=== PATIENT | female | born 1995 | race African-American/Black ===

== ENCOUNTER 2022-01-31 14:31 | Emergency (ER) | payer OTHER ==
[2022-01-31 14:44] VITALS: BP 143/92; PULSE 106; TEMP 98.3; BMI 24.2
== END 2022-01-31 15:22 | disposition home or self-care (01) ==
LOC: JERFT 14:31
DX: Z76.0 Encounter for issue of repeat prescription (principal)
CPT/HCPCS: 99281-25

== ENCOUNTER 2022-09-29 00:19 | Emergency (ER) | payer OTHER ==
[2022-09-29 00:27] VITALS: BP 128/85; PULSE 100; RESP 20; TEMP 98.5; BMI 26.6
[2022-09-29] MEDS ORDERED: IBUPROFEN 400 MG TABLET (FP) PO ONE ×2 (03:19→03:22)
== END 2022-09-29 03:50 | disposition home or self-care (01) ==
LOC: JER 00:19
DX: U07.1 COVID-19 (principal)
CPT/HCPCS: 0241U-QW; 99283-25

== ENCOUNTER 2022-10-16 20:17 | Emergency (ER) | payer OTHER ==
[2022-10-16 20:43] VITALS: BP 144/84; PULSE 82; RESP 18; TEMP 98.1; BMI 23.5
[2022-10-16] MEDS ORDERED: ACETAMINOPHEN 1000 MG/100 ML BAG IVPB ONE (22:01)
[2022-10-16] MEDS ORDERED: ONDANSETRON 4 MG/2 ML VIAL IVPUSH ONE (22:01)
[2022-10-16] MEDS ORDERED: ONDANSETRON 4 MG/2 ML VIAL ONE (22:45)
[2022-10-16] MEDS ORDERED: ACETAMINOPHEN INJECTION 100 ML IVPB ONE (22:45)
[2022-10-16 23:48] LABS: BASO % 0.5 % (0-2.0); EOS % 0.8 % (0-4.5); HEMATOCRIT 29.1 % (32.4-45.2); HEMOGLOBIN 9.3 GM/dL (10.7-15.3); LYMPH % 29.6 % (8-40); MCH 27.2 pg (25.7-33.7); MCHC 32.1 g/dl (32.0-36.0); MEAN CELL VOLUME 84.7 fl (80-96); MEAN PLT VOLUME 8.6 fl (7.5-11.1); MONO % 9.8 % (3.8-10.2); NEUT % 59.3 % (42.8-82.8); PLATELET COUNT 270 10^3/uL (134-434); RBC 3.43 M/mm3 (3.60-5.2); RDW 14.8 % (11.6-15.6); WHITE BLOOD COUNT 7.4 K/mm3 (4.0-10.0)
[2022-10-16 23:52] LABS: HCG,QUALITATIVE URINE Positive
[2022-10-16 23:57] LABS: EPI CELLS 15 /uL (0-25.1); HYALINE CASTS 2 /uL (0-3.1); URINE APPEARANCE CLEAR; URINE BACTERIA 58 /uL (0-1359); URINE BILIRUBIN NEGATIVE (NEGATIVE); URINE COLOR YELLOW; URINE GLUCOSE (UA) NEGATIVE (NEGATIVE); URINE KETONE TRACE (NEGATIVE); URINE LEUK ESTERASE NEGATIVE (NEGATIVE); URINE NITRITE NEGATIVE (NEGATIVE); URINE PROTEIN 1+ (NEGATIVE); URINE RBC 200 /uL (0-23.9); URINE WBC 7 /uL (0-25.8)
[2022-10-17 00:10] LABS: CALCIUM 9.2 mg/dL (8.5-10.1)
[2022-10-17 00:11] LABS: ALBUMIN 3.2 g/dl (3.4-5.0); BLOOD UREA NITROGEN 14.2 mg/dL (7-18)
[2022-10-17 00:14] LABS: CREATININE 0.9 mg/dL (0.55-1.3)
[2022-10-17 00:15] LABS: BILIRUBIN,TOTAL 0.2 mg/dL (0.2-1); TOT PROT 7.5 g/dl (6.4-8.2)
== END 2022-10-17 03:15 | disposition home or self-care (01) ==
LOC: JER 20:17
PROC: 3E0333Z Introduction of Anti-inflammatory into Peripheral Vein, Percutaneous Approach (ICD-10-PCS; principal; 2022-10-16)
PROC: 3E033GC Introduction of Other Therapeutic Substance into Peripheral Vein, Percutaneous Approach (ICD-10-PCS; 2022-10-16)
DX: O46.91 Antepartum hemorrhage, unspecified, first trimester (principal); Z3A.01 Less than 8 weeks gestation of pregnancy
CPT/HCPCS: 36415; 76830-TC; 80053; 81003; 84702; 84703; 85025; 86850; 86900; 86901; 87491; 87591; 99284-25

== ENCOUNTER 2022-10-17 18:44 | Emergency (ER) | payer OTHER ==
[2022-10-17 19:03] VITALS: BMI 23.4
[2022-10-17] MEDS ORDERED: morphine CARPU-JECT 4 MG/1 ML DISP.SYRIN IVPUSH ONE (19:36)
[2022-10-17] MEDS ORDERED: SODIUM CHLORIDE 0.9% 500 ML INFUS.BAG IV ONE (19:36)
[2022-10-17 20:48] LABS: BASO % 0.2 % (0-2.0); HEMATOCRIT 29.8 % (32.4-45.2); HEMOGLOBIN 9.6 GM/dL (10.7-15.3); LYMPH % 19.1 % (8-40); MCH 27.5 pg (25.7-33.7); MCHC 32.4 g/dl (32.0-36.0); MEAN PLT VOLUME 8.9 fl (7.5-11.1); MONO % 8.6 % (3.8-10.2); NEUT % 71.1 % (42.8-82.8); PLATELET COUNT 293 10^3/uL (134-434); RDW 15.3 % (11.6-15.6); WHITE BLOOD COUNT 7.2 K/mm3 (4.0-10.0)
[2022-10-17 21:15] LABS: ALBUMIN 3.4 g/dl (3.4-5.0); BLOOD UREA NITROGEN 10.6 mg/dL (7-18); CALCIUM 9.4 mg/dL (8.5-10.1)
[2022-10-17 21:18] LABS: CREATININE 0.9 mg/dL (0.55-1.3)
[2022-10-17 21:20] LABS: BILIRUBIN,TOTAL 0.2 mg/dL (0.2-1); TOT PROT 7.7 g/dl (6.4-8.2)
[2022-10-17] MEDS ORDERED: morphine SULFATE 4 MG/ML VIAL ONE (21:47)
[2022-10-17 22:26] LABS: INR 1.03 (0.83-1.09); PROTHROMBIN TIME (PATIENT) 11.9 SEC (9.7-13.0)
[2022-10-18] MEDS ORDERED: ACETAMINOPHEN 1000 MG/100 ML BAG IVPB ONE (00:39)
[2022-10-18] MEDS ORDERED: ACETAMINOPHEN INJECTION 100 ML IVPB ONE (00:53)
[2022-10-18 02:59] VITALS: BP 127/83; PULSE 86; RESP 18; TEMP 98.1
== END 2022-10-18 03:13 | disposition home or self-care (01) ==
LOC: JER 18:44
PROC: 3E033GC Introduction of Other Therapeutic Substance into Peripheral Vein, Percutaneous Approach (ICD-10-PCS; principal; 2022-10-17)
DX: O20.9 Hemorrhage in early pregnancy, unspecified (principal); Z3A.00 Weeks of gestation of pregnancy not specified
CPT/HCPCS: 0241U-QW; 36415; 76817-TC; 80053; 84702; 85025; 85610; 85730; 86850; 86900; 86901; 93005; 93010; 99285-25

== ENCOUNTER 2022-10-19 01:12 | Emergency (ER) | payer OTHER ==
[2022-10-19 01:47] VITALS: RESP 17; TEMP 98.2; BMI 26.6
[2022-10-19] MEDS ORDERED: KETOROLAC TROMETHAMINE 60 MG/2 ML VIAL IM ONE (01:53)
[2022-10-19] MEDS ORDERED: KETOROLAC TROMETHAMINE 60 MG/2 ML VIAL ONE (01:55)
[2022-10-19] MEDS ORDERED: morphine CARPU-JECT 4 MG/1 ML DISP.SYRIN IVPUSH ONE (02:55)
[2022-10-19] MEDS ORDERED: ONDANSETRON 4 MG/2 ML VIAL IVPUSH ONE (03:07)
[2022-10-19 03:36] LABS: HEMATOCRIT 28.3 % (32.4-45.2); HEMOGLOBIN 9.3 GM/dL (10.7-15.3); MCH 27.8 pg (25.7-33.7); MEAN CELL VOLUME 84.3 fl (80-96); MEAN PLT VOLUME 8.7 fl (7.5-11.1); PLATELET COUNT 280 10^3/uL (134-434); RBC 3.36 M/mm3 (3.60-5.2); RDW 15.1 % (11.6-15.6); WHITE BLOOD COUNT 10.2 K/mm3 (4.0-10.0)
[2022-10-19 03:52] LABS: CHLORIDE 99 mmol/L (98-107); SODIUM 123 mmol/L (136-145)
[2022-10-19 03:54] LABS: ALBUMIN 3.2 g/dl (3.4-5.0); BLOOD UREA NITROGEN 7.3 mg/dL (7-18); CALCIUM 8.5 mg/dL (8.5-10.1); CO2 23 mmol/L (21-32); GLUCOSE,RANDOM 100 mg/dL (74-106)
[2022-10-19 03:57] LABS: CREATININE 0.7 mg/dL (0.55-1.3)
[2022-10-19 03:59] LABS: TOT PROT 9.2 g/dl (6.4-8.2)
[2022-10-19 04:00] LABS: ALK PHOS 53 U/L (45-117)
[2022-10-19] MEDS ORDERED: SODIUM CHLORIDE 0.9% 500 ML INFUS.BAG IV ONE (04:04)
[2022-10-19 04:17] LABS: ANION GAP 2 MMOL/L (8-16); SGOT/AST 258 U/L (15-37)
[2022-10-19] MEDS ORDERED: morphine SULFATE 4 MG/ML VIAL ONE (04:26)
[2022-10-19 05:03] LABS: CALCIUM 9.1 mg/dL (8.5-10.1)
[2022-10-19 05:04] LABS: ALBUMIN 3.4 g/dl (3.4-5.0); BLOOD UREA NITROGEN 7.3 mg/dL (7-18)
[2022-10-19 05:07] LABS: CREATININE 0.7 mg/dL (0.55-1.3)
[2022-10-19 05:09] LABS: BILIRUBIN,TOTAL 0.3 mg/dL (0.2-1); TOT PROT 7.7 g/dl (6.4-8.2)
[2022-10-19 07:18] LABS: ANISOCYTOSIS 2+; MACROCYTOSIS 0
[2022-10-19] MEDS ORDERED: ACETAMINOPHEN 500 MG TABLET (FP) PO ONE (07:38)
[2022-10-19] MEDS ORDERED: ACETAMINOPHEN 325 MG TABLET (FP) ONE (07:41)
[2022-10-19 09:28] VITALS: BP 122/76; PULSE 79
[2022-10-19] MEDS ORDERED: MISOPROSTOL 200 MCG TABLET PO SCH ×2 (09:30→12:00)
== END 2022-10-19 10:07 | disposition home or self-care (01) ==
LOC: JER 01:12
PROC: 3E033GC Introduction of Other Therapeutic Substance into Peripheral Vein, Percutaneous Approach (ICD-10-PCS; principal; 2022-10-19)
PROC: 3E023GC Introduction of Other Therapeutic Substance into Muscle, Percutaneous Approach (ICD-10-PCS; principal; 2022-10-19)
DX: O20.9 Hemorrhage in early pregnancy, unspecified (principal); Z3A.00 Weeks of gestation of pregnancy not specified
CPT/HCPCS: 0241U-QW; 36415; 76817-TC; 80053; 84702; 85025; 99285-25

== ENCOUNTER 2022-10-20 18:08 | Inpatient (IN) | payer OTHER ==
[2022-10-20 18:23] VITALS: BMI 26.2
[2022-10-20] MEDS ORDERED: ACETAMINOPHEN 1000 MG/100 ML BAG IVPB ONE (18:44)
[2022-10-20] MEDS ORDERED: ONDANSETRON 4 MG/2 ML VIAL IVPUSH ONE (18:44)
[2022-10-20] MEDS ORDERED: ONDANSETRON 4 MG/2 ML VIAL ONE (19:28)
[2022-10-20 19:40] LABS: BASO % 0.2 % (0-2.0); HEMATOCRIT 25.6 % (32.4-45.2); HEMOGLOBIN 8.1 GM/dL (10.7-15.3); LYMPH % 8.6 % (8-40); MCHC 31.8 g/dl (32.0-36.0); MEAN CELL VOLUME 84.9 fl (80-96); MEAN PLT VOLUME 8.7 fl (7.5-11.1); MONO % 2.2 % (3.8-10.2); PLATELET COUNT 325 10^3/uL (134-434); RBC 3.01 M/mm3 (3.60-5.2); RDW 15.1 % (11.6-15.6); WHITE BLOOD COUNT 11.5 K/mm3 (4.0-10.0)
[2022-10-20 19:46] LABS: INR 1.03 (0.83-1.09); PROTHROMBIN TIME (PATIENT) 11.9 SEC (9.7-13.0)
[2022-10-20 19:48] LABS: ACTIVATED PTT 29.1 SECONDS (25.2-36.5)
[2022-10-20 19:50] LABS: CALCIUM 9.1 mg/dL (8.5-10.1)
[2022-10-20 19:51] LABS: ALBUMIN 3.4 g/dl (3.4-5.0); BLOOD UREA NITROGEN 11.6 mg/dL (7-18)
[2022-10-20 19:54] LABS: CREATININE 0.9 mg/dL (0.55-1.3)
[2022-10-20 19:56] LABS: BILIRUBIN,TOTAL 0.2 mg/dL (0.2-1); TOT PROT 7.3 g/dl (6.4-8.2)
[2022-10-20] MEDS ORDERED: morphine CARPU-JECT 2 MG/1 ML DISP.SYRIN IVPUSH ONE (20:44)
[2022-10-20] MEDS ORDERED: morphine SULFATE 4 MG/ML VIAL ONE (20:49)
[2022-10-20] MEDS ORDERED: KETOROLAC TROMETHAMINE 15 MG/ML VIAL IVPUSH ONE ×2 (22:26→23:03)
[2022-10-20] MEDS ORDERED: KETOROLAC TROMETHAMINE 15 MG/ML VIAL ONE (23:30)
[2022-10-21] LABS: BASO % 0.4 % (0-2.0); HEMATOCRIT 22.7 % (32.4-45.2); HEMOGLOBIN 7.4 GM/dL (10.7-15.3); LYMPH % 17.4 % (8-40); MCH 27.7 pg (25.7-33.7); MCHC 32.5 g/dl (32.0-36.0); MEAN CELL VOLUME 85.2 fl (80-96); MEAN PLT VOLUME 10.2 fl (7.5-11.1); MONO % 2.5 % (3.8-10.2); NEUT % 79.7 % (42.8-82.8); RBC 2.66 M/mm3 (3.60-5.2); RDW 14.9 % (11.6-15.6)
[2022-10-21 00:20] LABS: PLATELET COUNT 9 10^3/uL (134-434)
[2022-10-21 00:52] LABS: BASO % 0.2 % (0-2.0); HEMATOCRIT 21.4 % (32.4-45.2); HEMOGLOBIN 7.1 GM/dL (10.7-15.3); LYMPH % 15.8 % (8-40); MCH 28.1 pg (25.7-33.7); MCHC 33.2 g/dl (32.0-36.0); MEAN CELL VOLUME 84.6 fl (80-96); MEAN PLT VOLUME 8.3 fl (7.5-11.1); MONO % 3.7 % (3.8-10.2); NEUT % 80.3 % (42.8-82.8); PLATELET COUNT 270 10^3/uL (134-434); RBC 2.52 M/mm3 (3.60-5.2); WHITE BLOOD COUNT 10.7 K/mm3 (4.0-10.0)
[2022-10-21] MEDS ORDERED: OXYTOCIN 20 UNITS in 0.9% NS 20 UNIT/1,000 ML INFUS.BAG IV SCH ×2 (01:45→07:15)
[2022-10-21] MEDS ORDERED: FENTANYL CITRATE/PF 50 MCG/ML VIAL ONE ×2 (06:18→06:48)
[2022-10-21] MEDS ORDERED: SUCCINYLCHOLINE CHLORIDE 200 MG/10 ML SYRINGE ONE (06:18)
[2022-10-21] MEDS ORDERED: MIDAZOLAM HCL 2 MG/2 ML SINGLE DOSE VIAL ONE (06:18)
[2022-10-21] MEDS ORDERED: ceFAZolin SODIUM 1 GM VIAL IVPB ONE (06:35)
[2022-10-21] MEDS ORDERED: ACETAMINOPHEN 325 MG TABLET (FP) PO PRN (07:10)
[2022-10-21] MEDS ORDERED: IBUPROFEN 400 MG TABLET (FP) PO PRN (07:10)
[2022-10-21] MEDS ORDERED: oxyCODONE HCL 5 MG TABLET PO PRN (07:10)
[2022-10-21] MEDS ORDERED: ACETAMINOPHEN 1000 MG/100 ML BAG IVPB ONE ×2 (07:22→07:23)
[2022-10-21] MEDS ORDERED: ONDANSETRON 4 MG/2 ML VIAL IVPUSH PRN (07:22)
[2022-10-21] MEDS ORDERED: ACETAMINOPHEN INJECTION 100 ML IVPB ONE (07:23)
[2022-10-21] MEDS ORDERED: LACTATED RINGERS SOLUTION 1,000 ML IV SCH (07:30)
[2022-10-21 07:55] LABS: BASO % 0.2 % (0-2.0); EOS % 0.2 % (0-4.5); HEMATOCRIT 22.5 % (32.4-45.2); LYMPH % 39.6 % (8-40); MCH 32.4 pg (25.7-33.7); MCHC 35.8 g/dl (32.0-36.0); MEAN CELL VOLUME 90.6 fl (80-96); MEAN PLT VOLUME 8.6 fl (7.5-11.1); MONO % 12.2 % (3.8-10.2); NEUT % 47.8 % (42.8-82.8); PLATELET COUNT 226 10^3/uL (134-434); RBC 2.48 M/mm3 (3.60-5.2); WHITE BLOOD COUNT 7.4 K/mm3 (4.0-10.0)
[2022-10-21 09:12] VITALS: RESP 20
[2022-10-21 12:32] VITALS: BP 110/68; PULSE 80; TEMP 98
== END 2022-10-21 12:30 | disposition home or self-care (01) | DRG 770 ==
LOC: JER 18:08 → JERBED 10-21 01:06
PROVIDERS: ADMIT Obstetrics & Gynecology; ATTEND Obstetrics & Gynecology
PROC: 10A07ZZ Abortion of Products of Conception, Via Natural or Artificial Opening (ICD-10-PCS; principal; 2022-10-21 06:00)
DX: O03.4 Incomplete spontaneous abortion without complication (principal); I10 Essential (primary) hypertension
CPT/HCPCS: 36415; 36430; 76830-TC; 80053; 84702; 85025; 85610; 85730; 86850; 86900; 86901; 86922; 88305-TC; 94760; 99285-25; C9803-CS; P9058; U0003; U0005